=== PATIENT | female | born 1980 | race Caucasian/White ===

== ENCOUNTER 2018-07-31 22:30 | Emergency (ER) | payer SELFPAY ==
[~2018-07-31] VITALS: Ht 157.5 cm; Wt 72.7 kg
[2018-07-31 22:38] VITALS: BP 133/81; TEMP 100.7
[2018-07-31] MEDS ORDERED: MULTI VITAMINS1 TAB PO (22:53)
[2018-07-31] MEDS ORDERED: TAMIFLU30 MG PO (23:52)
[2018-08-01 00:19] VITALS: PULSE 105
== END 2018-08-01 00:20 | disposition home or self-care (01) ==
LOC: COL.ER 22:30
DX: J10.1 Influenza due to other identified influenza virus with other respiratory manifestations (principal)